=== PATIENT | male | born 1990 | race Caucasian/White ===

== ENCOUNTER 2016-03-21 13:56 | Emergency (ER) | payer BC, OTHER ==
[~2016-03-21] VITALS: Ht 182.9 cm; Wt 90.7 kg
[2016-03-21 16:40] VITALS: BP 137/80
== END 2016-03-21 16:51 | disposition home or self-care (01) ==
LOC: ER 14:05
DX: T58.91XA Toxic effect of carbon monoxide from unspecified source, accidental (unintentional), initial encounter (principal); Z98.890 Other specified postprocedural states; X58.XXXA Exposure to other specified factors, initial encounter; Y93.89 Activity, other specified; Y99.8 Other external cause status; Y92.89 Other specified places as the place of occurrence of the external cause
CPT/HCPCS: 36600; 71020; 82805